=== PATIENT | male | born 1965 | race Caucasian/White ===

== ENCOUNTER 2018-11-24 09:58 | Day surgery (SDC) | payer BC ==
[~2018-11-24 09:58] MED LIST: ACETAMINOPHEN 1,000 MG/100 ML BTL IV ONE; CEFAZOLIN 2 Gram 2 GM/50 ML BAG IVPB ONE; FAMOTIDINE 20MG TABLET PO ONE; METOCLOPRAMIDE 10 MG TABLET PO ONE; SCOPOLAMINE 1 PATCH TDSY TD ONE
[2018-11-24] MEDS ORDERED: DEXAMETHASONE 4 MG/ML 1ML VIAL IVP ONE (09:59)
[2018-11-24] MEDS ORDERED: PROPOFOL 10 MG/ML VIAL IV ONE (09:59)
[2018-11-24] MEDS ORDERED: MIDAZOLAM HCL 2MG/2ML VIAL IV ONE (09:59)
[2018-11-24] MEDS ORDERED: ONDANSETRON HCL IV 4 MG/2 ML VIAL IVP ONE (09:59)
[2018-11-24] MEDS ORDERED: KETOROLAC 30 MG/ML VIAL IVP ONE (09:59)
[2018-11-24] MEDS ORDERED: MORPHINE SULFATE 4 MG/ML VIAL IVP ONE (09:59)
[2018-11-24] MEDS ORDERED: FENTANYL PF 100MCG/2ML VIAL IV ONE (09:59)
[2018-11-24] MEDS ORDERED: LIDOCAINE 2% MDV (20MG/ML) 20ML VIAL IV ONE (09:59)
[2018-11-24] MEDS ORDERED: SEVOFLURANE 250 ML INH ONE (09:59)
[2018-11-24] MEDS ORDERED: MORPHINE SULFATE 4 MG/ML VIAL ONE (11:34)
--- NOTE | 2018-11-25 08:01 | Operative Note ---
DATE OF SURGERY: 11/24/2018 PREOPERATIVE DIAGNOSIS: Internal derangement of the right knee. POSTOPERATIVE DIAGNOSES: 1. Grade 3 chondromalacia patella. 2. Grade 3 chondromalacia medial femoral condyle. 3. Flap tear involving the anterior horn of the lateral meniscus. OPERATION: 1. Right knee arthroscopy with partial lateral meniscectomy. 2. Right knee arthroscopy with chondroplasty of patella and medial femoral condyle. Staff Surgeon: Geoff Ivey MD Anesthesia: General. Preparation: Chloraprep. Individual Considerations: None. PROCEDURE: The patient was taken to the operating room and placed supine on the operating room table. The patient had a successful induction with general anesthetic. The right lower extremity was prepped and draped in the usual fashion. The patient had a superolateral inflow cannula placed. Skin was infiltrated with 0.5% Marcaine with epinephrine prior. The knee was inflated with normal saline. An inferomedial and an inferolateral portal were made in a similar fashion. The arthroscope was introduced through the inferolateral portal up into the pouch. The patellofemoral compartment showed grade 3 change of the patella, which was smoothed with a shaver. Notch looked good. Medially, small grade 3 change in the medial femoral condyle centrally, and this was smoothed with a shaver. Medial meniscus and medial tibial plateau were intact. In the notch, the cruciates were normal. Laterally, there was a flap tear involving the anterior medial horn of the lateral meniscus, which was debrided back to a stable rim with a shaver. The remainder of the lateral compartment was normal. The knee was then irrigated out with saline to remove loose floating debris. Portals were closed with arya, and 20 mL of 0.5% Marcaine with epinephrine along with 4 mg of morphine and 40 mg of Depo-Medrol were injected into the knee. A sterile bulky compressive dressing was applied. The patient tolerated the procedure well. Needle and sponge counts were correct. Estimated blood loss was minimal. He was taken back to recovery in good condition. There were no complications. CARLITA
== END 2018-11-24 13:45 | disposition home or self-care (01) ==
LOC: SUR 09:58
PROVIDERS: ATTEND Orthopaedic Surgery
DX: S83.281A Other tear of lateral meniscus, current injury, right knee, initial encounter (principal); M94.261 Chondromalacia, right knee
CPT/HCPCS: 29881; 01400; 36416; 82948; J1885; J2405; J3010; J0690; J2270

== ENCOUNTER 2019-11-30 09:10 | Day surgery (SDC) | payer BC ==
[~2019-11-30 09:10] MED LIST changes: -ACETAMINOPHEN 1,000 MG/100 ML BTL IV ONE; +ACETAMINOPHEN 1,000 MG/100 ML BTL IVPB ONE; -FAMOTIDINE 20MG TABLET PO ONE; -METOCLOPRAMIDE 10 MG TABLET PO ONE; -SCOPOLAMINE 1 PATCH TDSY TD ONE
[2019-11-30] MEDS ORDERED: SUGAMMADEX SODIUM 200 MG/2 ML VIAL IV ONE (09:11)
[2019-11-30] MEDS ORDERED: ROCURONIUM BROMIDE 50MG/5ML VIAL IV ONE (09:11)
[2019-11-30] MEDS ORDERED: ONDANSETRON HCL IV 4 MG/2 ML VIAL IVP ONE (09:11)
[2019-11-30] MEDS ORDERED: MIDAZOLAM HCL 2MG/2ML VIAL IV ONE (09:11)
[2019-11-30] MEDS ORDERED: FENTANYL PF 100MCG/2ML VIAL IV ONE (09:11)
[2019-11-30] MEDS ORDERED: DEXAMETHASONE 4 MG/ML 1ML VIAL IVP ONE (09:11)
[2019-11-30] MEDS ORDERED: PROPOFOL 10 MG/ML VIAL IV ONE (09:11)
[2019-11-30] MEDS ORDERED: LIDOCAINE 2% MDV (20MG/ML) 20ML VIAL IV ONE (09:11)
[2019-11-30] MEDS ORDERED: RINGERS SOLUTION,LACTATED 1,000 ML IV ONE ×2 (10:26→13:15)
[2019-11-30] MEDS ORDERED: CEFAZOLIN 1 Gram 1 GM/50 ML BAG IVPB ONE (12:32)
[2019-11-30] MEDS ORDERED: MORPHINE SULFATE (PACU ONLY) 4 MG/ML VIAL IU ONE (13:00)
[2019-11-30] MEDS ORDERED: METHYLPREDNISOLONE 40MG/VIAL IU ONE (13:00)
[2019-11-30] MEDS ORDERED: BUPIVACAINE 0.5% W/EPI MPF 30 ML VIAL SQ ONE (13:00)
[2019-11-30] MEDS ORDERED: IPRATROPIUM/ALBUTEROL (0.5MG/3MG) NEB INH ONE (13:21)
[2019-11-30] MEDS ORDERED: ALBUTEROL SULFATE (0.083%) 2.5 MG/3 ML NEB INH ONE (13:30)
--- NOTE | 2019-12-06 14:01 | Operative Note ---
DATE OF SURGERY: 11/30/2019 PREOPERATIVE DIAGNOSIS: Internal derangement left knee. POSTOPERATIVE DIAGNOSES: 1. Unstable grade 3 chondromalacia of patella. 2. Grade 3 chondromalacia of medal femoral condyle. OPERATION: Left knee arthroscopy with chondroplasty of the patella and medial femoral condyle. STAFF SURGEON: Geoff Ivey MD ANESTHESIA: General. PREPARATION: Chloraprep. INDIVIDUAL CONSIDERATIONS: None. PROCEDURE: The patient was taken to the operating room and placed supine on the operating room table. The patient had a successful induction with general anesthetic. The left lower extremity was prepped and draped in the usual fashion. The patient had a superolateral inflow cannula placed. Skin was infiltrated with 0.5% Marcaine with epinephrine prior. A stab wound was made and the knee was inflated with normal saline with an inflow cannula. A clear fluid was drained prior. An inferomedial and an inferolateral portal were made in a similar fashion. The arthroscope was introduced through the inferolateral portal up into the pouch. The patellofemoral joint showed no loose bodies in either gutter, nothing in the pouch, no significant synovitis. The undersurface of the patella throughout had peeling cartilage especially on the lateral facet area. This was smoothed off with a shaver. Again, notch looked good. Medial compartment showed a large ulcer on the medial femoral condyle about the size of a half dollar with peeling cartilage luckily not down to bone. This was centrally at about 45 degrees. This was smoothed with a shaver. The medial meniscus and medial tibial plateau were normal. The cruciates were normal, and lateral compartment structures were normal. The knee was then irrigated out with saline to remove loose floating debris. Portals were closed with arya, and 15 mL of 0.5% Marcaine with epinephrine along with 4 mg of morphine and 40 mg of Depo-Medrol were injected into the knee. A sterile bulky compressive dressing was applied. The patient tolerated procedure well. Needle and sponge counts were correct. Estimated blood loss was minimal. He was taken back to recovery in good condition. There were no complications. CARLITA
== END 2019-11-30 14:03 | disposition home or self-care (01) ==
LOC: SUR 09:10
PROVIDERS: ATTEND Orthopaedic Surgery
DX: M22.42 Chondromalacia patellae, left knee (principal); I10 Essential (primary) hypertension; E78.00 Pure hypercholesterolemia, unspecified; E11.9 Type 2 diabetes mellitus without complications; M10.9 Gout, unspecified; J45.909 Unspecified asthma, uncomplicated; G47.33 Obstructive sleep apnea (adult) (pediatric); K21.9 Gastro-esophageal reflux disease without esophagitis; Z86.39 Personal history of other endocrine, nutritional and metabolic disease
CPT/HCPCS: 29877; 01400; 76942; J2405; J3010; J0690 ×2; J3490; J2270; J1030; J7120; J7613